=== PATIENT | female | born 2000 | race Caucasian/White ===

== ENCOUNTER 2022-09-11 07:09 | Emergency (ER) | payer MEDICAID | END 2022-09-11 08:00 | disposition home or self-care (01) | LOC: LB.ED 07:09 | DX: L05.91 Pilonidal cyst without abscess (principal) | CPT/HCPCS: 99283 ==

== ENCOUNTER 2022-09-13 00:56 | Emergency (ER) | payer MEDICAID ==
[2022-09-13 02:18] VITALS: BP 105/66; PULSE 90
== END 2022-09-13 01:55 | disposition home or self-care (01) ==
LOC: LB.ED 00:56
DX: K61.0 Anal abscess (principal)
CPT/HCPCS: 10060; 46050; 99282; 99282-25

== ENCOUNTER 2022-09-14 11:30 | Emergency (ER) | payer MEDICAID | END 2022-09-14 12:53 | disposition home or self-care (01) | LOC: LB.ED 11:30 | DX: L05.01 Pilonidal cyst with abscess (principal) | CPT/HCPCS: 99283 ==